=== PATIENT | female | born 1955 | race Caucasian/White ===

== ENCOUNTER → 2018-06-04 | Outpatient (CLI) | payer OTHER, MEDICARE ==
[~2018-06-04] MED LIST: ASPI-496 PO; BENA20TA4 PO; CEFT1VIA20 IV; CEFT2PIG IV; CHOL200040 PO; CYAN1TAB29 PO; ESTR30CR VG; FOLI0.8T2 PO; FUROSEMIDE 20 MG/2 ML ONE; IBUP200T64 PO; MAGN100T6 PO; NOVALIN 70/30 SQ-INSULIN; ONDA4TAB10 PO; OXYC-302 PO; POTASSIUM GLUCONATE PO; SULF1TAB24 PO; VITA1CAP PO; VITA400C43 PO; VITA80004 PO; VITAMIN B1 PO; VITAMIN C PO
== END | disposition home or self-care (01) ==
LOC: PETCFH 10:08
PROVIDERS: ATTEND Specialist
DX: N13.39 Other hydronephrosis (principal); E11.9 Type 2 diabetes mellitus without complications; Z93.6 Other artificial openings of urinary tract status; Z85.42 Personal history of malignant neoplasm of other parts of uterus
CPT/HCPCS: 78708; A9562; J1940